=== PATIENT | female | born 1985 | race Caucasian/White ===

== ENCOUNTER 2024-01-31 14:23 | Emergency (ER) | payer MEDICAID ==
[~2024-01-31] VITALS: Ht 170.2 cm; Wt 100.0 kg
[2024-01-31 14:35] VITALS: BP 159/80; PULSE 88; RESP 16; TEMP 97.9; O2SAT 97
[2024-01-31] MEDS: ONDANSETRON HCL 4MG/2ML INJ IM STA (16:36)
[2024-01-31] MEDS: KETOROLAC 60MG/2ML VIAL IM STA (16:36)
[2024-01-31] MEDS ORDERED: NAPR-681 MT (17:08)
[2024-01-31] MEDS: BACITRACIN ZINC OINT UDPKT TOP ONE (17:14)
== END 2024-01-31 17:16 | disposition home or self-care (01) ==
LOC: ER 14:23
DX: S01.01XA Laceration without foreign body of scalp, initial encounter (principal); S09.90XA Unspecified injury of head, initial encounter; Y08.89XA Assault by other specified means, initial encounter; Y93.89 Activity, other specified; Y92.89 Other specified places as the place of occurrence of the external cause; Y99.8 Other external cause status
CPT/HCPCS: 99285; 70450; 81025; 96372; J1885; J2405